=== PATIENT | female | born 1985 | race Caucasian/White ===

== ENCOUNTER 2021-04-21 08:17 | Outpatient (REF) | payer OTHER, SELFPAY ==
[2021-04-21 11:22] LABS: MANUAL DIFF FLAG NO
[2021-04-21 11:37] LABS: Basophils Percent Auto 0.4 % (0-2); Eosinophils Absolute Auto 0.1 X10*3/uL (0.0-0.4); Eosinophils Percent Auto 1.6 % (0-4); Hematocrit 38.7 % (37-47); Hemoglobin 12.9 g/dl (12.0-16.0); Imm Gran Abs Auto 0.01 X10*3/uL (0.00-0.03); Imm Gran Pct Auto 0.2 % (0.0-0.4); Lymphocytes Percent Auto 35.3 % (20-40); Mean Corpuscular HGB Conc 33.3 g/dl (31.0-35.0); Mean Corpuscular Hemoglobin 30.1 pg (27.0-33.0); Mean Corpuscular Volume 90.2 fL (80-98); Mean Platelet Volume 11.2 fL (9.4-12.3); Monocytes Absolute Auto 0.3 X10*3/uL (0.1-1.2); Neutrophils Absolute Auto 3.2 X10*3/uL (2.0-8.3); Neutrophils Percent Auto 57.5 % (45-73); Platelet Count 321 X10*3/uL (160-400); Red Blood Count 4.29 X10*6/uL (4.20-5.50); Red Cell Distribution Width 12.7 % (11.0-16.0); White Blood Count 5.6 X10*3/uL (4.8-10.8)
[2021-04-21 11:59] LABS: Alanine Aminotransferase 13 U/L (0-31); Albumin Level 4.1 g/dL (3.5-5.0); Alkaline Phosphatase 29 U/L (39-117); Anion Gap 12 (12-20); Aspartate Amino Transferase 12 U/L (5-31); Bilirubin Total 0.5 mg/dL (0.0-1.0); Blood Urea Nitrogen 11 mg/dL (9-16); Calcium 9.6 mg/dL (8.4-10.2); Carbon Dioxide 24 mmol/L (22-29); Chloride 107 mmol/L (96-108); Cholesterol 190 mg/dL; Estimated Glomerular Filt Rate > 60; Glucose Fasting 89 mg/dL (60-99); HDL Cholesterol 51 mg/dL; LDL Cholesterol Calculated 124 mg/dl; Potassium 4.5 mmol/L (3.3-5.1); Sodium 138 mmol/L (135-145); Total Protein 7.3 g/dL (6.5-8.0); Triglycerides 79 mg/dL
[2021-04-21 12:21] LABS: TSH reflex Free T4 0.93 uIU/mL (0.32-4.0)
== END 2021-04-21 08:18 | disposition home or self-care (01) ==
LOC: HO.HMGCLDS 08:17
PROVIDERS: PCP Internal Medicine; Visit Provider Internal Medicine
DX: F41.1 Generalized anxiety disorder (principal); F43.9 Reaction to severe stress, unspecified; R21 Rash and other nonspecific skin eruption; R41.840 Attention and concentration deficit
CPT/HCPCS: 36415; 80053; 80061; 84443; 85025

== ENCOUNTER 2022-09-06 13:50 | Outpatient (AMB) | payer OTHER, SELFPAY ==
--- NOTE | 2022-09-06 14:21 | AM.OFFWIN_ITS ---
Intake Vital Signs 09/06/22 14:25 BP 112/60 Blood Pressure Location Lt brachial Position Sitting Pulse 80 Pulse Source Pulse Oximeter Temp 97.9 F Temp Source Oral Pulse Oximetry (%) 96 Oxygen Delivery Method Room Air Intake Visit Reasons: EP Ear infection? [phone] Intake Note: Patient is here with left ear discomfort for 2-3 weeks. Patient Tobacco Use Status: Former Tobacco user Allergies No Known Allergies Allergy (Verified 01/30/23 11:37) Do you need a note to return to daycare/school/sports/work: No HPI EP Ear infection? [phone] HPI Details Patient is a 38-year-old female who comes to the walk-in clinic complaining of left ear discomfort for 2-3 weeks. No other associated respiratory symptoms, and she denies fever chills, cough, postnasal drip, headache or dizziness, nausea vomiting or diarrhea, leakage from the ears, hearing changes, or other significant associated symptoms. [facility] Medical History Anxiety, generalized Surgical History No pertinent past surgical history Family History Father No problems noted. Mother No problems noted. Sister Thyroid nodule Other Mental health disorder Social History Housing: House Patient Tobacco Use Status: Former Tobacco user e-Cigarette/Vaping Use: Never Used service: No Current occupational status: employed Cognitive needs: No Hearing needs: No Vision needs: No Review of Systems Const All systems reviewed & are unremarkable except as noted in HPI and below Physical Exam Vital Signs: Last Vital Signs Temp 97.9 F 09/06/22 14:25 Pulse 80 09/06/22 14:25 BP 112/60 09/06/22 14:25 Pulse Ox 96 09/06/22 14:25 Oxygen Delivery Method Room Air 09/06/22 14:25 Const General: cooperative, healthy appearing, comfortable, no acute distress, alert, awake, Physically active and well groomed; No anxious, diaphoretic, ill appearin g, intoxicated appearing, poor hygiene or tired appearing Nutritional Appearance: average body habitus Orientation/consciousness: oriented to person Limitations: no limitations HEENT Head: Yes normal to inspection, Yes normocephalic and Yes atraumatic Ears: hearing grossly normal bilaterally, external ears normal, TM normal on the right, EAC's normal and TM abnormal wth effusion, erythematous and with fluid behind the TM Face and sinus: Yes normal facial exam, Yes sinuses nontender and Yes face symmetric Throat: Yes posterior oropharynx normal, No peritonsillar mass, No postnasal drainage, No uvular edema and No cobblestoning Eyes General: appearance normal, both eyes and all related structures Neck Neck: Yes normal visual inspection, Yes no lymphadenopathy, Yes trachea midline, Yes supple and No anterior neck swelling Resp Effort & Inspection: normal respiratory effort Cardio Rate: regular rate Rhythm: regular rhythm Skin Other: Good color, warm and dry Neuro General: oriented to person Psych Appearance: grossly normal Mental Status: mental status grossly normal Speech and movement: Normal speech and movement present Affect: normal affect Attitude: cooperative Thought process: Normal thought process present Insight: Good insight present (Psych) Judgement: Good judgement present (Psych) Assessment & Plan Assessment & Plan (1) Otitis media of left ear: Code(s): H66.92 - Otitis media, unspecified, left ear Qualifiers: Chronicity: acute Plan: Patient with left otitis media, will start on course of Augmentin and we discussed using fluticasone to help with drainage. She will follow up if symptoms persist or worsen Medications: New amoxicillin-pot clavulanate 875-125 mg 1 tab PO BID 10 tabs 0RF fluticasone propionate 50 mcg/actuation administer into each nostril 1 spray intranasal DAILY 16 grams 0RF naproxen 500 mg PO BID PRN 30 tabs 0RF pain 14 days Coding Level of Care Code Est Pt Level 3 (36172) Diagnoses Otitis media of left ear H66.92 Chronicity: acute
[2022-09-06 14:25] VITALS: BP 112/60; PULSE 80; TEMP 36.6; O2SAT 96
== END 2022-09-06 15:55 | disposition home or self-care (01) ==
PROVIDERS: PCP Internal Medicine; Visit Provider Physician Assistant Medical
DX: H66.92 Otitis media, unspecified, left ear (principal)
CPT/HCPCS: 99213

== ENCOUNTER 2022-10-17 10:04 | Outpatient (REF) | payer OTHER, SELFPAY ==
--- NOTE | ~2022-10-17 | XR_ITS ---
EXAMINATION: XR CHEST CLINICAL INFORMATION: Cough. COMPARISON: None available. TECHNIQUE: 2 views of the chest were obtained. FINDINGS: No significant abnormality is noted involving the heart, lungs, mediastinum, bony thorax or soft tissues. XR/XR chest 2V IMPRESSION: No acute cardiopulmonary process.
== END 2022-10-17 10:05 | disposition home or self-care (01) ==
LOC: HO.HMGCX 10:04
PROVIDERS: Visit Provider Nurse Practitioner Family
DX: R05.9 Cough, unspecified (principal)
CPT/HCPCS: 71046

== ENCOUNTER 2023-01-30 11:36 | Outpatient (AMB) | payer OTHER, SELFPAY ==
[2023-01-30 11:36] VITALS: BP 116/84; PULSE 82; O2SAT 98; BMI 26.0
--- NOTE | 2023-01-30 11:36 | MHC.PC.OV ---
Vital Signs 01/30/23 11:36 Height 5 ft 4 in Weight 151 lb 6 oz BMI 26.0 BP 116/84 Blood Pressure Location Lt brachial Position Sitting Pulse 82 Pulse Source Pulse Oximeter Pulse Oximetry (%) 98 Oxygen Delivery Method Room Air Intake Visit Reasons: Annual PE Allergies No Known Allergies Allergy (Verified 01/30/23 11:37) Medication List - Last Reconciled 01/30/23 by Lorraine Omer MD buspirone 5 mg PO TID PRN 90 days fluticasone propionate 50 mcg/actuation 1 spray intranasal DAILY naproxen 500 mg PO BID PRN 14 days naproxen 375 mg PO BID PRN 3 days norethindrone (contraceptive) (Incassia) 0.35 mg PO DAILY Tobacco use date assessed: 01/30/23 Dental Screening Dental Screen Date: 01/30/23 Did you have a dental visit in the last 12 months?: Yes Did you have a dental problem in the last 6 months where you did not have access to dental care?: No Was dental information given to patient?: No HPI Annual PE HPI Details Patient is year old came in today for physical exam Patient have OBGYN at [facility] Pap smear and breast exams through them She has appointment for mammogram also through OBGYN in February that will be next month Patient have carpal tunnel syndrome left hand and now it is also starting in the right hand she is wearing a splint on left I would recommend to wear on right as well at night and if the splint is not controlling the symptoms then we need to further investigate regarding severity of the problem. I have ordered labs for her she is to do that fasting Patient is now seeing psych med provider for PTSD depression and anxiety currently she is taking buspirone 10 mg b.i.d. and Wellbutrin 150 mg once a day She has been weaned off fluoxetine. FMLA paperwork if needed still it should be through the psych med provider it is for patient's PTSD. Follow-up 1 year [facility] Medical History Anxiety, generalized Surgical History No pertinent past surgical history Family History Father No problems noted. Mother No problems noted. Sister Thyroid nodule Other Mental health disorder Social History Housing: House Patient Tobacco Use Status: Former Tobacco user e-Cigarette/Vaping Use: Never Used service: No Current occupational status: employed Cognitive needs: No Hearing needs: No Vision needs: No Questionnaire Thrive Questionnaire Date Thrive assessed: 04/19/22 AUDIT C Alcohol Use Questionnaire (AUDIT-C) 1. How often do you have a drink containing alcohol?: Monthly or less 2. How many drinks containing alcohol do you have on a typical day when you are drinking?: 1 or 2 3. How often do you have six or more drinks on one occasion?: Never Total Score: 1 Score Reviewed/Action Taken: Yes YUNI-7 AMB Questionnaire YUNI-7 Date YUNI - 7 assessed: 04/19/22 Source: Developed by Drs. Mario Alberto Lucero, Eleanor Phillips, Rony Melendez and colleagues, with an educational lupillo from [employer]. Review of Systems Const Denies chills, Denies fever(s) and Denies headache(s) Eyes Denies blurry vision ENT Denies headache(s), Denies nasal discharge, Denies nasal obstruction, Denies odynophagia and Denies sinus pain Card Denies chest pain at rest and Denies chest pain with activity Resp Denies cough and Denies hemoptysis GI Denies diarrhea, Denies odynophagia, Denies vomiting and Denies hematemesis Reports as per HPI Musc Denies abnormal gait Skin/Breast Reports as per HPI Neuro Denies Neuro-related abnormal movements, Denies Abnormal speech present, Denies abnormal gait, Denies headache(s) and Denies Sensory deficit (Neuro) Psych Denies mood swings and Denies paranoia Endo Reports as per HPI Buck/Lymph Reports as per HPI Aller/Immun Reports as per HPI Physical exam (Primary Care) Vital Signs: Last Vital Signs Pulse 82 01/30/23 11:36 BP 116/84 01/30/23 11:36 Pulse Ox 98 01/30/23 11:36 Oxygen Delivery Method Room Air 01/30/23 11:36 BMI result Body Mass Index 26.0 Tobacco/Smoking Status: Tobacco use Status Tobacco use date assessed 07/19/23 07/19/23 11:39 Patient Tobacco Use Status Former Tobacco user 01/30/23 11:39 e-Cigarette/Vaping Use Never Used 01/30/23 11:39 Thrive Assessment: Date of Thrive Assessment Date Thrive assessed 04/19/22 01/30/23 11:39 Const General: cooperative, comfortable and no acute distress Orientation/consciousness: patient oriented x3 HENMT Head: Yes normocephalic and Yes atraumatic Eyes General: appearance normal, both eyes and all related structures Pupils: Equal, round and reactive pupils present EOM: EOMs intact bilaterally Neck Neck: Yes supple and No lymphadenopathy Thyroid: Thyroid normal Lymphatic: no lymphadenopathy noted Resp Effort & Inspection: normal respiratory effort and able to speak in complete sentences Auscultation: clear to auscultation bilaterally Cardio Heart sounds: S1 normal heart sound present and S2 normal heart sound present GI Palpation (GI): Soft to palpation and nontender Auscultation: normal bowel sounds General: Yes no CVA tenderness Back/Spine/Pelvis Back: no CVA tenderness Skin General skin exam: elasticity normal and turgor normal Neuro General: patient oriented x3 and gait normal Cranial nerves: Yes Equal, round and reactive pupils present Speech: No Abnormal speech present Sensory Exam: No Sensory deficit (Neuro) Coordination: tandem gait normal and Romberg test negative Extrem General: Yes normal exam except as noted and No edema Assessment and Plan Assessment & Plan (1) Encounter for general adult medical examination with abnormal findings: Code(s): Z00.01 - Encounter for general adult medical examination with abnormal findings (2) Major depressive disorder, recurrent, moderate: Code(s): F33.1 - Major depressive disorder, recurrent, moderate (3) PTSD (post-traumatic stress disorder): Code(s): F43.10 - Post-traumatic stress disorder, unspecified (4) Anxiety, generalized: Code(s): F41.1 - Generalized anxiety disorder (5) Paresthesia of both hands: Code(s): R20.2 - Paresthesia of skin Plan Patient is year old came in today for physical exam Patient have OBGYN at [facility] Pap smear and breast exams through them She has appointment for mammogram also through OBGYN in February that will be next month Patient have carpal tunnel syndrome left hand and now it is also starting in the right hand she is wearing a splint on left I would recommend to wear on right as well at night and if the splint is not controlling the symptoms then we need to further investigate regarding severity of the problem. I have ordered labs for her she is to do that fasting Patient is now seeing psych med provider for PTSD depression and anxiety currently she is taking buspirone 10 mg b.i.d. and Wellbutrin 150 mg once a day She has been weaned off fluoxetine. FMLA paperwork if needed still it should be through the psych med provider it is for patient's PTSD. Follow-up 1 year Orders: Orders Comprehensive [place]. Panel Fast Today F33.1 - Major depressive disorder, recurrent, moderate, F41.1 - Generalized anxiety disorder, F43.10 - Post-traumatic stress disorder, unspecified, Z00.01 - Encounter for general adult medical examination with abnormal findings Lipid Panel Today F33.1 - Major depressive disorder, recurrent, moderate, F41.1 - Generalized anxiety disorder, F43.10 - Post-traumatic stress disorder, unspecified, Z00.01 - Encounter for general adult medical examination with abnormal findings TSH reflex Free T4 Today F33.1 - Major depressive disorder, recurrent, moderate, F41.1 - Generalized anxiety disorder, F43.10 - Post-traumatic stress disorder, unspecified, Z00.01 - Encounter for general adult medical examination with abnormal findings Complete Blood Count Auto Diff Today F33.1 - Major depressive disorder, recurrent, moderate, F41.1 - Generalized anxiety disorder, F43.10 - Post-traumatic stress disorder, unspecified, Z00.01 - Encounter for general adult medical examination with abnormal findings Vitamin B12 Today R20.2 - Paresthesia of skin Vitamin D 25-OH (D2 and D3) Today R20.2 - Paresthesia of skin Coding Level of Care Code Est Pt Prev Care 40-64y(67814) Diagnoses Encounter for general adult medical examination with abnormal findings Z00.01 Major depressive disorder, recurrent, moderate F33.1 PTSD (post-traumatic stress disorder) F43.10 Anxiety, generalized F41.1 Paresthesia of both hands R20.2
== END 2023-01-30 14:13 | disposition home or self-care (01) ==
PROVIDERS: Visit Provider Internal Medicine
DX: Z00.01 Encounter for general adult medical examination with abnormal findings (principal); F33.1 Major depressive disorder, recurrent, moderate; F43.10 Post-traumatic stress disorder, unspecified; F41.1 Generalized anxiety disorder; R20.2 Paresthesia of skin
CPT/HCPCS: 99396

== ENCOUNTER 2023-04-19 15:38 | Outpatient (AMB) | payer OTHER, SELFPAY ==
[2023-04-19 15:39] VITALS: BP 118/78; PULSE 70; O2SAT 99; BMI 27.5
--- NOTE | 2023-04-19 15:39 | MHC.PC.OV ---
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: No Accompanied by: Self / Same As Patient Allergies No Known Allergies Allergy (Verified 04/19/23 15:39) Medication List - Last Reconciled 04/19/23 by Lorraine Omer MD bupropion HCl 150 mg PO QAM buspirone 5 mg PO TID PRN 90 days drospirenone-ethinyl estradiol 3-0.02 mg (Maria D (28)) 1 tab PO DAILY fluticasone propionate 50 mcg/actuation 1 spray intranasal DAILY naproxen 500 mg PO BID PRN 14 days Tobacco use date assessed: 01/30/23 Dental Screening Dental Screen Date: 04/19/23 Did you have a dental visit in the last 12 months?: Yes Did you have a dental problem in the last 6 months where you did not have access to dental care?: No Was dental information given to patient?: Patient has dentist HPI Left hand tingling/ Numbness HPI Details Patient is 38-year-old female came in today to talk about tingling and numbness in left hand more than right Patient have this problem chronically but now it has gotten worse. She said that she sometimes feels weak in her hand. We talked about carpal tunnel syndrome and what can be done to release the pressure from the nerve She is on the computer all day typing , I have told her to get a proper computer stand so that her wrist is not band. Also start wearing wrist splint at night every night Naproxen with food b.i.d. as needed for discomfort and inflammation I have ordered nerve conduction study for the patient to see how but the problem is and then we will go from there. [facility] Medical History Anxiety, generalized Surgical History No pertinent past surgical history Family History Father No problems noted. Mother No problems noted. Sister Thyroid nodule Other Mental health disorder Social History Housing: House Patient Tobacco Use Status: Former Tobacco user e-Cigarette/Vaping Use: Never Used service: No Current occupational status: employed Cognitive needs: No Hearing needs: No Vision needs: No Questionnaire PHQ-9 Over the last 2 weeks, how often have you been bothered by any of the following problems? 1. Little interest or pleasure in doing things: several days 2. Feeling down, depressed, or hopeless: several days 3. Trouble falling or staying asleep, or sleeping too much: more than half the days 4. Feeling tired or having little energy: more than half the days 5. Poor appetite or overeating: more than half the days 6. Feeling bad about yourself - or that you are a failure or have let yourself or your family down: several days 7. Trouble concentrating on things, such as reading the newspaper or watching television: more than half the days 8. Moving or speaking so slowly that other people could have noticed. Or the opposite - being so fidgety or restless that you have been moving around a lot more than usual: several days 9. Thoughts that you would be better off or of hurting yourself in some way: not at all Total score: 12 Depression Screening Interpretation: Positive Depression Screening Done: Yes 66609 - PHQ-9 Billing: Yes Source: Developed by Drs. Mario Alberto Lucero, Eleanor Phillips, Rony Melendez and colleagues, with an educational lupillo from [employer]. Thrive Questionnaire Date Thrive assessed: 04/19/23 I am a: Patient What is your living situation today?: I have a steady place to live Within the past 12 months, did the food you bought not last and you didn't have the money to get more?: Never true Within the past 12 months, did you worry whether your food would run out before you got money to buy more?: Never true Do you have trouble paying for medicines?: No Do you have trouble getting transportation to medical appointments?: No Do you have trouble paying your heating and electricity bill?: No Do you have trouble taking care of your child, family member or friend?: No Do you have trouble with day-to-day activities such as bathing, preparing meals, shopping, managing finances, etc.?: No Are you currently unemployed and looking for a job?: No Are you interested in more education?: No Please select the resources that you would like help with: None Currently or been in a relationship where the following occur: I choose not to answer this question YUNI-7 AMB Questionnaire YUNI-7 Date YUNI - 7 assessed: 04/19/22 Feeling nervous, anxious, or on edge: 2 = More than half the days Not being able to stop or control worryin = Several days Worrying too much about different things: 2 = More than half the days Trouble relaxin = Several days Being so restless that it is hard to sit still: 2 = More than half the days Becoming easily annoyed or irritable: 2 = More than half the days Feeling afraid as if something awful might happen: 0 = Not at all Total YUIN-7 score (0-4 normal; 5-9 mild; 10-14 moderate; 15-21 severe): 10 Source: Developed by Drs. Mario Alberto Lucero, Eleanor Phillips, Rony Melendez and colleagues, with an educational lupillo from [employer]. YUNI-7 Assessment Billing YUNI-7 Assessment Tool: YUNI-7 Assessment 78484 Review of Systems Const All systems reviewed & are unremarkable except as noted in HPI and below Physical exam (Primary Care) Vital Signs: Last Vital Signs Pulse 70 04/19/23 15:39 BP 118/78 04/19/23 15:39 Pulse Ox 99 04/19/23 15:39 BMI result Body Mass Index 27.5 Tobacco/Smoking Status: Tobacco use Status Tobacco use date assessed 01/30/23 04/19/23 15:41 Patient Tobacco Use Status Former Tobacco user 04/19/23 15:41 e-Cigarette/Vaping Use Never Used 04/19/23 15:41 PHQ-9: PHQ-9 Score PHQ-9: Total score 12 04/19/23 16:08 Depression Screening Interpretation: Positive Thrive Assessment: Date of Thrive Assessment Date Thrive assessed 04/19/23 04/19/23 16:08 Currently or been in a relationship where the following occur: I choose not to answer this question Const General: no acute distress Orientation/consciousness: patient oriented x3 Eyes General: appearance normal, both eyes and all related structures Resp Effort & Inspection: normal respiratory effort and able to speak in complete sentences Auscultation: clear to auscultation bilaterally Neuro Other: Positive Tinel sign left wrist General: patient oriented x3 Psych Mental Status: mental status grossly normal Assessment and Plan Assessment & Plan (1) Paresthesia of both hands: Code(s): R20.2 - Paresthesia of skin Plan Patient is 38-year-old female came in today to talk about tingling and numbness in left hand more than right Patient have this problem chronically but now it has gotten worse. She said that she sometimes feels weak in her hand. We talked about carpal tunnel syndrome and what can be done to release the pressure from the nerve She is on the computer all day typing , I have told her to get a proper computer stand so that her wrist is not band. Also start wearing wrist splint at night every night Naproxen with food b.i.d. as needed for discomfort and inflammation I have ordered nerve conduction study for the patient to see how but the problem is and then we will go from there. Orders: Orders NE nerve conduction velocity Today R20.2 - Paresthesia of skin NE electromyogram (EMG) Today R20.2 - Paresthesia of skin Coding Level of Care Code Est Pt Level 4 (99097) Diagnoses Paresthesia of both hands R20.2 Additional Codes YUNI-7 Assessment Billing - YUNI-7 Assessment Tool: YUNI-7 Assessment [id number] ([id number])
== END 2023-04-19 16:06 | disposition home or self-care (01) ==
PROVIDERS: PCP Internal Medicine; Visit Provider Internal Medicine
DX: R20.2 Paresthesia of skin (principal)
CPT/HCPCS: 99214

== ENCOUNTER 2023-05-09 08:17 | Outpatient (REF) | payer OTHER, SELFPAY ==
--- NOTE | 2023-05-09 08:21 | EMG_ITS ---
Left median and ulnar motor and sensory studies were performed. Left radial and median and lateral antecubital sensory studies were performed and paraspinal muscles were tested. IMPRESSION: 1. 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 2. Mild left ulnar neuropathy across cubital tunnel. 3. No evidence of a proximal lesion such as plexopathy or radiculopathy. MD WAYNE Joyner/GOLDEN / [id number]
== END 2023-05-09 08:18 | disposition home or self-care (01) ==
LOC: HO.NEURO 08:17
PROVIDERS: Visit Provider Internal Medicine
DX: R20.2 Paresthesia of skin (principal)
CPT/HCPCS: 95886; 95910

== ENCOUNTER 2023-05-16 09:04 | Outpatient (AMB) | payer OTHER, SELFPAY ==
--- NOTE | 2023-05-16 08:28 | A.OFFPC_ITS ---
Intake Visit Reasons: Discuss Test Results/ Numbness In Hands~ Allergies No Known Allergies Allergy (Verified 05/16/23 08:29) Medication List - Last Reconciled 05/16/23 by Lorraine Omer MD bupropion HCl 150 mg PO QAM buspirone 5 mg PO TID PRN 90 days drospirenone-ethinyl estradiol 3-0.02 mg (Maria D (28)) 1 tab PO DAILY fluticasone propionate 50 mcg/actuation 1 spray intranasal DAILY naproxen 500 mg PO BID PRN 14 days Tobacco use date assessed: 05/16/23 Dental Screening Dental Screen Date: 05/16/23 Did you have a dental visit in the last 12 months?: No Did you have a dental problem in the last 6 months where you did not have access to dental care?: No Was dental information given to patient?: Patient has dentist HPI Discuss Test Results/ Numbness In Hands~ HPI Details Patient continued to have paresthesia left hand, she has worn splint and has taken a leave it has been almost 1 month and symptoms persist and is getting worse Nerve conduction study done on left hand showed Asyz-xa-jayrydun left median neuropathy across carpal tunnel. 2. Mild left ulnar neuropathy across cub ital tunnel. 3. No evidence of a proximal lesion such as plexopathy or radiculopathy. Her workman's comp declined right-sided nerve conduction study even though patient is symptomatic on the right side as well but it is not as bad as left She has already made appointment with [facility] Dr. Dunbar Appointment is coming up next Uziel We talked about different options like cortisone injection and surgery patient had lot of question regarding recovery. She will discuss it further with the surgeon. Referral created and we will also fax over this note. [facility] Medical History Anxiety, generalized Surgical History No pertinent past surgical history Family History Father No problems noted. Mother No problems noted. Sister Thyroid nodule Other Mental health disorder Social History Housing: House Patient Tobacco Use Status: Former Tobacco user e-Cigarette/Vaping Use: Never Used service: No Current occupational status: employed Cognitive needs: No Hearing needs: No Vision needs: No Questionnaire Thrive Questionnaire Date Thrive assessed: 04/19/23 AUDIT C Alcohol Use Questionnaire (AUDIT-C) 1. How often do you have a drink containing alcohol?: Never 3. How often do you have six or more drinks on one occasion?: Never Total Score: 0 Score Reviewed/Action Taken: Yes YUNI-7 AMB Questionnaire YUNI-7 Date YUNI - 7 assessed: 04/19/22 Source: Developed by Drs. Mario Alberto Lucero, Eleanor Phillips, Rony Melendez and colleagues, with an educational lupillo from [employer]. Review of Systems Const Denies chills and Denies fever(s) ENT Denies epistaxis and Denies nasal discharge Card Denies chest pain Resp Denies chest congestion, Denies cough and Denies hemoptysis GI Denies diarrhea and Denies nausea Skin/Breast Denies rash Neuro Reports no additional complaints Psych Reports no additional complaints Endo Reports no additional complaints Physical exam (Primary Care) Tobacco/Smoking Status: Tobacco use Status Tobacco use date assessed 05/16/23 05/16/23 08:30 Patient Tobacco Use Status Former Tobacco user 05/16/23 08:30 e-Cigarette/Vaping Use Never Used 05/16/23 08:30 Thrive Assessment: Date of Thrive Assessment Date Thrive assessed 04/19/23 05/16/23 08:30 Telehealth Telehealth Location of provider rendering services: practice address Location of patient: address on file Patient Identification confirmed using: Name, : Yes Telehealth method: video Patient verbally consented to treatment: Yes Patient verbally consented to billing insurance company: Yes Patient informed of any privacy concerns related to visit: Yes Minutes spent on Phone/Video with Pt.: 18 Assessment and Plan Assessment & Plan (1) Left median nerve neuropathy: Code(s): G56.12 - Other lesions of median nerve, left upper limb (2) Ulnar nerve neuropathy: Code(s): G56.20 - Lesion of ulnar nerve, unspecified upper limb Qualifiers: Laterality: left Qualified Code(s): G56.22 - Lesion of ulnar nerve, left upper limb (3) Paresthesia of both hands: Code(s): R20.2 - Paresthesia of skin Plan Patient continued to have paresthesia left hand, she has worn splint and has taken a leave it has been almost 1 month and symptoms persist and is getting worse Nerve conduction study done on left hand showed Uuec-ce-sywscjat left median neuropathy across carpal tunnel. 2. Mild left ulnar neuropathy across cubital tunnel. 3. No evidence of a proximal lesion such as plexopathy or radiculopathy. Her workman's comp declined right-sided nerve conduction study even though patient is symptomatic on the right side as well but it is not as bad as left She has already made appointment with [facility] Dr. Dunbar Appointment is coming up next Uziel We talked about different options like cortisone injection and surgery patient had lot of question regarding recovery. She will discuss it further with the surgeon. Referral created and we will also fax over this note. Orders: Referrals Orthopedics Referral G56.12 - Other lesions of median nerve, left upper limb Coding Level of Care Code Tele Est Pt Level 4 (91448) Diagnoses Left median nerve neuropathy G56.12 Ulnar neuropathy of left upper extremity G56.22 Laterality: left Paresthesia of both hands R20.2 Time Spent (min) 30 Comment 5 prep, 18 with patient, 7 charting / referral
== END 2023-05-16 11:25 | disposition home or self-care (01) ==
PROVIDERS: PCP Internal Medicine; Visit Provider Internal Medicine
DX: G56.12 Other lesions of median nerve, left upper limb (principal); G56.22 Lesion of ulnar nerve, left upper limb; R20.2 Paresthesia of skin
CPT/HCPCS: 99214

== ENCOUNTER 2023-06-19 09:09 | Outpatient (AMB) | payer OTHER, SELFPAY ==
--- NOTE | 2023-06-19 09:25 | AM.OFFWIN_ITS ---
Intake Vital Signs 06/19/23 09:26 Height 5 ft 4 in Weight 160 lb BMI 27.5 BP 90/50 L Blood Pressure Location Rt brachial Position Sitting Pulse 69 Pulse Source Pulse Oximeter Temp 97 F Temp Source Temporal Artery Scan Pulse Oximetry (%) 97 Oxygen Delivery Method Room Air Intake Visit Reasons: EP Lft ear ringing stomach nausea Intake Note: Pt is here c/o ringing sound in her left ear for the past three days. Pt also states she has had diarrhea and stomach discomfort. Patient Tobacco Use Status: Former Tobacco user Allergies No Known Allergies Allergy (Verified 06/19/23 09:56) Medication List - Last Reconciled 06/19/23 by Leigh Reed, [facility]- bupropion HCl 150 mg PO QAM buspirone 5 mg PO TID PRN 90 days drospirenone-ethinyl estradiol 3-0.02 mg (Maria D (28)) 1 tab PO DAILY fluticasone propionate 50 mcg/actuation 1 spray intranasal DAILY naproxen 500 mg PO BID PRN 14 days Do you need a note to return to daycare/school/sports/work: Yes HPI HPI Comments History of Present Illness Details here today w c/o ringing in bilat luz maria L>R, started a few days ago. It is constant. No pain in ears. Hearing is muffled but not lost. Not assoc w/ trauma. Takes otc antihistamine QD and occasional use of flonase. PRN Naproxen, sparingly. Did take Aleve today. Also had 2 episodes of diarrhea, nonbloody, today. This started after consuming new diet, high in fiber and raw veggies. She doesnt think her issues are related but wanted to mention the diarrhea. Denies fever, travel, sick contacts, n/v, urinary complaints. Admits chills. Denies drainage from ear, swimming, abd surgery, chance of . She is on OCP. Tried supportive care at home w/o relief. [facility] Medical History Anxiety, generalized Surgical History No pertinent past surgical history Family History Father No problems noted. Mother No problems noted. Sister Thyroid nodule Other Mental health disorder Social History Housing: House Patient Tobacco Use Status: Former Tobacco user e-Cigarette/Vaping Use: Never Used service: No Current occupational status: employed Cognitive needs: No Hearing needs: No Vision needs: No Review of Systems Const All systems reviewed & are unremarkable except as noted in HPI and below Physical Exam Vital Signs: Last Vital Signs Temp 97 F 06/19/23 09:26 Pulse 69 06/19/23 09:26 BP 90/50 L 06/19/23 09:26 Pulse Ox 97 06/19/23 09:26 Oxygen Delivery Method Room Air 06/19/23 09:26 BMI result Body Mass Index 27.5 Const Other: awake alert sclera clear bilat sinuses & turbinates clear bilat TM intact bilat with very mild effusions pharynx clear MMM speaking in full setences Abd: soft, nontender. BS WNL x 4 quads. Assessment & Plan Assessment & Plan (1) Tinnitus: Code(s): H93.19 - Tinnitus, unspecified ear Qualifiers: Laterality: bilateral Qualified Code(s): H93.13 - Tinnitus, bilateral Plan: reassured; edu about some causes though often idiopathic and benign edu about need to seek add'l care: loss of hearing, pain, drainage. avoid high Na+ food and drink. Ok to use flonase; avoid other nasal spray. (2) Diarrhea: Code(s): R19.7 - Diarrhea, unspecified Qualifiers: Diarrhea type: functional diarrhea Qualified Code(s): K59.1 - Functional diarrhea Plan: likely r/t high fiber and new diet avoid high fiber and known food triggers if abd pain, bloody stools or vomiting occur, need to seek addl care otherwise can use otc imodium PRN Coding Level of Care Code Est Pt Level 4 (64894) Diagnoses Tinnitus of both ears H93.13 Laterality: bilateral Functional diarrhea K59.1 Diarrhea type: functional diarrhea
[2023-06-19 09:26] VITALS: BP 90/50; PULSE 69; TEMP 36.1; O2SAT 97; BMI 27.5
== END 2023-06-19 10:28 | disposition home or self-care (01) ==
PROVIDERS: PCP Internal Medicine; Visit Provider Nurse Practitioner Family
DX: H93.13 Tinnitus, bilateral (principal); K59.1 Functional diarrhea
CPT/HCPCS: 99214

== ENCOUNTER 2024-02-04 15:40 | Outpatient (AMB) | payer OTHER, SELFPAY ==
--- NOTE | 2024-02-04 15:42 | MHC.PC.OV ---
Vital Signs 02/04/24 15:43 Height 5 ft 4 in Weight 156 lb 6 oz BMI 26.8 BP 102/70 Blood Pressure Location Rt brachial Position Sitting Pulse 78 Pulse Source Pulse Oximeter Pulse Oximetry (%) 99 Oxygen Delivery Method Room Air Intake Visit Reasons: Physical Exam Allergies No Known Allergies Allergy (Verified 02/04/24 15:45) Medication List - Last Reconciled 02/04/24 by Lorraine Omer MD bupropion HCl XL 300 mg PO QAM buspirone 5 mg PO TID PRN 90 days drospirenone-ethinyl estradiol 3-0.02 mg (Maria D (28)) 1 tab PO DAILY fluticasone propionate 50 mcg/actuation 1 spray intranasal DAILY Tobacco use date assessed: 05/16/23 Dental Screening Dental Screen Date: 02/04/24 Did you have a dental visit in the last 12 months?: Yes Did you have a dental problem in the last 6 months where you did not have access to dental care?: No Was dental information given to patient?: Patient has dentist HPI Physical Exam HPI Details Patient is 39 year old female, came in today for physical exam Patient had OBGYN at [facility] however daughter retired and she is in need of new OBGYN Mammograms up-to-date Patient have chronic constipation and she bleed off and due to hemorrhoids most likely She is requesting a referral to gastroenterology which I have placed for her Lab order placed to be done fasting Patient was seeing psych med provider for PTSD depression and anxiety currently she is taking buspirone 10 mg b.i.d. 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 Mother No problems noted. Sister Thyroid nodule Other Mental health disorder Social History Housing: House Patient Tobacco Use Status: Former Tobacco user e-Cigarette/Vaping Use: Never Used service: No Current occupational status: employed Cognitive needs: No Hearing needs: No Vision needs: No Questionnaire PHQ-9 Over the last 2 weeks, how often have you been bothered by any of the following problems? 1. Little interest or pleasure in doing things: several days 2. Feeling down, depressed, or hopeless: several days 3. Trouble falling or staying asleep, or sleeping too much: several days 4. Feeling tired or having little energy: several days 5. Poor appetite or overeating: several days 6. Feeling bad about yourself - or that you are a failure or have let yourself or your family down: several days 7. Trouble concentrating on things, such as reading the newspaper or watching television: several days 8. Moving or speaking so slowly that other people could have noticed. Or the opposite - being so fidgety or restless that you have been moving around a lot more than usual: several days 9. Thoughts that you would be better off or of hurting yourself in some way: not at all Total score: 8 Depression Screening Interpretation: Negative Depression Screening Done: Yes 25118 - PHQ-9 Billing: Yes Source: Developed by Drs. Mario Alberto Lucero, Eleanor Phillips, Rony Melendez and colleagues, with an educational lupillo from [employer]. Thrive Questionnaire Date Thrive assessed: 02/04/24 I am a: Patient What is your living situation today?: I have a place to live, but I am worried about losing it in the future Within the past 12 months, did the food you bought not last and you didn't have the money to get more?: Never true Within the past 12 months, did you worry whether your food would run out before you got money to buy more?: Never true Do you have trouble paying for medicines?: No Do you have trouble getting transportation to medical appointments?: No Do you have trouble paying your heating and electricity bill?: Yes Do you have trouble taking care of your child, family member or friend?: No Do you have trouble with day-to-day activities such as bathing, preparing meals, shopping, managing finances, etc.?: No Are you currently unemployed and looking for a job?: No Are you interested in more education?: No Please select the resources that you would like help with: Housing/Detention Currently or been in a relationship where the following occur: I choose not to answer THRIVE Score: 2 AUDIT C Alcohol Use Questionnaire (AUDIT-C) 1. How often do you have a drink containing alcohol?: 2-4 times a month 2. How many drinks containing alcohol do you have on a typical day when you are drinking?: 3 or 4 3. How often do you have six or more drinks on one occasion?: Never Total Score: 3 Score Reviewed/Action Taken: Yes YUNI-7 AMB Questionnaire YUNI-7 Date YUNI - 7 assessed: 02/04/24 Feeling nervous, anxious, or on edge: 2 = More than half the days Not being able to stop or control worryin = More than half the days Worrying too much about different things: 2 = More than half the days Trouble relaxin = More than half the days Being so restless that it is hard to sit still: 1 = Several days Becoming easily annoyed or irritable: 2 = More than half the days Feeling afraid as if something awful might happen: 1 = Several days Total YUNI-7 score (0-4 normal; 5-9 mild; 10-14 moderate; 15-21 severe): 12 Source: Developed by Drs. Mario Alberto Lucero, Eleanor Phillips, Rony Melendez and colleagues, with an educational lupillo from [employer]. YUNI-7 Assessment Billing YUNI-7 Assessment Tool: YUNI-7 Assessment 99812 Review of Systems Const Denies chills, Denies fever(s) and Denies headache(s) Eyes Denies blurry vision ENT Denies headache(s), Denies nasal discharge, Denies nasal obstruction, Denies odynophagia and Denies sinus pain Card Denies chest pain at rest and Denies chest pain with activity Resp Denies cough and Denies hemoptysis GI Denies diarrhea, Denies odynophagia, Denies vomiting and Denies hematemesis Reports as per HPI Musc Denies abnormal gait Skin/Breast Reports as per HPI Neuro Denies Neuro-related abnormal movements, Denies Abnormal speech present, Denies abnormal gait, Denies headache(s) and Denies Sensory deficit (Neuro) Psych Denies mood swings and Denies paranoia Endo Reports as per HPI Buck/Lymph Reports as per HPI Aller/Immun Reports as per HPI Physical exam (Primary Care) Vital Signs: Last Vital Signs Pulse 78 02/04/24 15:43 BP 102/70 02/04/24 15:43 Pulse Ox 99 02/04/24 15:43 Oxygen Delivery Method Room Air 02/04/24 15:43 BMI result Body Mass Index 26.8 Tobacco/Smoking Status: Tobacco use Status Tobacco use date assessed 05/16/23 02/04/24 15:47 Patient Tobacco Use Status Former Tobacco user 02/04/24 15:47 e-Cigarette/Vaping Use Never Used 02/04/24 15:47 PHQ-9: PHQ-9 Score PHQ-9: Total score 8 02/04/24 15:47 Depression Screening Interpretation: Negative Thrive Assessment: Date of Thrive Assessment Date Thrive assessed 02/04/24 02/04/24 15:47 Currently or been in a relationship where the following occur: I choose not to answer Const General: cooperative, comfortable and no acute distress Orientation/consciousness: patient oriented x3 HENMT Head: Yes normocephalic and Yes atraumatic Eyes General: appearance normal, both eyes and all related structures Pupils: Equal, round and reactive pupils present EOM: EOMs intact bilaterally Neck Neck: Yes supple and No lymphadenopathy Thyroid: Thyroid normal Lymphatic: no lymphadenopathy noted Resp Effort & Inspection: normal respiratory effort and able to speak in complete sentences Auscultation: clear to auscultation bilaterally Cardio Heart sounds: S1 normal heart sound present and S2 normal heart sound present GI Palpation (GI): Soft to palpation and nontender Auscultation: normal bowel sounds General: Yes no CVA tenderness Back/Spine/Pelvis Back: no CVA tenderness Skin General skin exam: elasticity normal and turgor normal Neuro General: patient oriented x3 and gait normal Cranial nerves: Yes Equal, round and reactive pupils present Speech: No Abnormal speech present Sensory Exam: No Sensory deficit (Neuro) Coordination: tandem gait normal and Romberg test negative Extrem General: Yes normal exam except as noted and No edema Assessment and Plan Assessment & Plan (1) Encounter for general adult medical examination with abnormal findings: Code(s): Z00.01 - Encounter for general adult medical examination with abnormal findings (2) Rectal bleed: Code(s): K62.5 - Hemorrhage of anus and rectum (3) Tired: Code(s): R53.83 - Other fatigue (4) Constipation by delayed colonic transit: Code(s): K59.01 - Slow transit constipation (5) Anxiety, generalized: Code(s): F41.1 - Generalized anxiety disorder (6) Panic attacks: Code(s): F41.0 - Panic disorder [episodic paroxysmal anxiety] (7) PTSD (post-traumatic stress disorder): Code(s): F43.10 - Post-traumatic stress disorder, unspecified (8) Major depressive disorder, recurrent, moderate: Code(s): F33.1 - Major depressive disorder, recurrent, moderate Plan Patient is 39 year old female, came in today for physical exam Patient had OBGYN at [facility] however daughter retired and she is in need of new OBGYN Mammograms up-to-date Patient have chronic constipation and she bleed off and due to hemorrhoids most likely She is requesting a referral to gastroenterology which I have placed for her Lab order placed to be done fasting Patient was seeing psych med provider for PTSD depression and anxiety currently she is taking buspirone 10 mg b.i.d. 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 Panel Fast Today F33.1 - Major depressive disorder, recurrent, moderate, F41.1 - Generalized anxiety disorder, F43.10 - Post-traumatic stress disorder, unspecified, K59.01 - Slow transit constipation, K62.5 - Hemorrhage of anus and rectum, R20.2 - Paresthesia of skin, R53.83 - Other fatigue Lipid Panel Today F33.1 - Major depressive disorder, recurrent, moderate, F41.1 - Generalized anxiety disorder, F43.10 - Post-traumatic stress disorder, unspecified, K59.01 - Slow transit constipation, K62.5 - Hemorrhage of anus and rectum, R20.2 - Paresthesia of skin, R53.83 - Other fatigue Vitamin D 25-OH (D2 and D3) Today F33.1 - Major depressive disorder, recurrent, moderate, F41.1 - Generalized anxiety disorder, F43.10 - Post-traumatic stress disorder, unspecified, K59.01 - Slow transit constipation, K62.5 - Hemorrhage of anus and rectum, R20.2 - Paresthesia of skin, R53.83 - Other fatigue Complete Blood Count Auto Diff Today F33.1 - Major depressive disorder, recurrent, moderate, F41.1 - Generalized anxiety disorder, F43.10 - Post-traumatic stress disorder, unspecified, K59.01 - Slow transit constipation, K62.5 - Hemorrhage of anus and rectum, R20.2 - Paresthesia of skin, R53.83 - Other fatigue Vitamin B12 Today F33.1 - Major depressive disorder, recurrent, moderate, F41.1 - Generalized anxiety disorder, F43.10 - Post-traumatic stress disorder, unspecified, K59.01 - Slow transit constipation, K62.5 - Hemorrhage of anus and rectum, R20.2 - Paresthesia of skin, R53.83 - Other fatigue TSH reflex Free T4 Today F33.1 - Major depressive disorder, recurrent, moderate, F41.1 - Generalized anxiety disorder, F43.10 - Post-traumatic stress disorder, unspecified, K59.01 - Slow transit constipation, K62.5 - Hemorrhage of anus and rectum, R20.2 - Paresthesia of skin, R53.83 - Other fatigue 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 Z01.419 - Encounter for gynecological examination (general) (routine) without abnormal findings Gastroenterology Referral K59.01 - Slow transit constipation, K62.5 - Hemorrhage of anus and rectum Psychiatry Referral F33.1 - Major depressive disorder, recurrent, moderate, F41.0 - Panic disorder [episodic paroxysmal anxiety], F43.10 - Post-traumatic stress disorder, unspecified Medications: Discontinued naproxen Discontinued Reason: Patient Completed Course 500 mg PO BID 14 days PRN 30 tabs 0RF pain Coding Level of Care Code Est Pt Level 4 (25403) Est Pt Prev Care 40-64y(16178) Diagnoses Encounter for general adult medical examination with abnormal findings Z00.01 Rectal bleed K62.5 Tired R53.83 Constipation by delayed colonic transit K59.01 Anxiety, generalized F41.1 Panic attacks F41.0 PTSD (post-traumatic stress disorder) F43.10 Major depressive disorder, recurrent, moderate F33.1 Additional Codes YUNI-7 Assessment Billing - YUNI-7 Assessment Tool: YUNI-7 Assessment 54258 ( ([id number])
[2024-02-04 15:43] VITALS: BP 102/70; PULSE 78; O2SAT 99; BMI 26.8
== END 2024-02-04 16:19 | disposition home or self-care (01) ==
PROVIDERS: PCP Internal Medicine; Visit Provider Internal Medicine
DX: Z00.00 Encounter for general adult medical examination without abnormal findings (principal); F33.1 Major depressive disorder, recurrent, moderate; K62.5 Hemorrhage of anus and rectum; R53.83 Other fatigue; K59.01 Slow transit constipation; F41.1 Generalized anxiety disorder; F41.0 Panic disorder [episodic paroxysmal anxiety]; F43.10 Post-traumatic stress disorder, unspecified
CPT/HCPCS: 99396

== ENCOUNTER 2024-03-06 06:59 | Outpatient (REF) | payer OTHER, SELFPAY ==
[2024-03-06 10:07] LABS: MANUAL DIFF FLAG NO
[2024-03-06 10:22] LABS: Basophils Percent Auto 0.7 % (0-2); Eosinophils Absolute Auto 0.1 X10*3/uL (0.0-0.4); Eosinophils Percent Auto 2.2 % (0-4); Hematocrit 36.8 % (37.0-47.0); Hemoglobin 12.3 g/dl (12.0-16.0); Imm Gran Abs Auto 0.01 X10*3/uL (0.00-0.03); Imm Gran Pct Auto 0.2 % (0.0-0.4); Lymphocytes Absolute Auto 2.7 X10*3/uL (1.2-4.9); Lymphocytes Percent Auto 44.6 % (20-40); Mean Corpuscular HGB Conc 33.4 g/dl (31.0-35.0); Mean Corpuscular Hemoglobin 30.4 pg (27.0-33.0); Mean Corpuscular Volume 90.9 fL (80.0-98.0); Mean Platelet Volume 10.7 fL (9.4-12.3); Monocytes Absolute Auto 0.4 X10*3/uL (0.1-1.2); Monocytes Percent Auto 6.1 % (2-11); Neutrophils Absolute Auto 2.8 x10*3/uL (2.0-8.3); Neutrophils Percent Auto 46.2 % (45-73); Platelet Count 318 X10*3/uL (160-400); Red Blood Count 4.05 X10*6/uL (4.20-5.50); Red Cell Distribution Width 12.8 % (11.0-16.0)
[2024-03-06 10:46] LABS: Alanine Aminotransferase 12 U/L (0-31); Alkaline Phosphatase 36 U/L (39-117); Anion Gap 11 (12-20); Aspartate Amino Transferase 12 U/L (5-31); Bilirubin Total 0.5 mg/dL (0.0-1.0); Blood Urea Nitrogen 12 mg/dL (9-16); Calcium 9.5 mg/dL (8.4-10.2); Carbon Dioxide 27 mmol/L (22-29); Chloride 106 mmol/L (96-108); Cholesterol 191 mg/dL (<200); Estimated Glomerular Filt Rate > 60; Glucose Fasting 90 mg/dL (60-99); HDL Cholesterol 63 mg/dL (>40); LDL Cholesterol Calculated 109 mg/dL (<100); Potassium 4.2 mmol/L (3.3-5.1); Sodium 140 mmol/L (135-145); Total Protein 7.3 g/dL (6.5-8.0); Triglycerides 99 mg/dL (<150)
[2024-03-06 11:01] LABS: Vitamin B12 359 pg/mL (200-900)
[2024-03-06 11:05] LABS: TSH reflex Free T4 2.92 uIU/mL (0.32-4.0)
[2024-03-12 11:29] LABS: Vitamin D 25-OH, D2 <4 ng/mL; Vitamin D 25-OH, D3 66 ng/mL; Vitamin D 25-OH, Total 66 ng/mL (30-100)
== END 2024-03-06 07:00 | disposition home or self-care (01) ==
LOC: HO.HMGCLDS 06:59
PROVIDERS: PCP Internal Medicine; Visit Provider Internal Medicine
DX: R20.2 Paresthesia of skin (principal); F33.1 Major depressive disorder, recurrent, moderate; F43.10 Post-traumatic stress disorder, unspecified; F41.1 Generalized anxiety disorder; K62.5 Hemorrhage of anus and rectum; K59.01 Slow transit constipation
CPT/HCPCS: 36415; 80053; 80061; 82306; 82607; 84443; 85025

== ENCOUNTER 2024-04-20 14:48 | Outpatient (AMB) | payer OTHER, SELFPAY ==
[2024-04-20 14:50] VITALS: BP 114/76; PULSE 74; O2SAT 97; BMI 25.5
--- NOTE | 2024-04-20 14:50 | A.OFFVIS_ITS ---
Vital Signs 04/20/24 14:50 Height 5 ft 4 in Weight 148 lb 9.465 oz BMI 25.5 BP 114/76 Blood Pressure Location Rt brachial Position Sitting Pulse 74 Pulse Source Pulse Oximeter Pulse Oximetry (%) 97 Oxygen Delivery Method Room Air Intake Visit Reasons: slow transit constipation Intake Note: Toyin presents in office today for a scheduled initial assessment. CC; Referred for ST constipation. Pt reports that they have been experiencing melena intermittently throughout the last few years. Pt does have hx of both internal and external hemorrhoids that were surgically removed. Pt does also recognize that it can become worse per stress and / or certain trigger foods. Pt reports that they are typically having a BM daily. Pt denies any N/V. However, they do report having intermittent reflux, typically 1-2 times per week. Pt denies any previous hx of colo or EGD. Pt has family hx of polyps. Route Delivery Clerk Required: No Allergies No Known Allergies Allergy (Verified 09/02/24 13:55) HPI Comments Details: 39 y.o F with PMH of who is here for constipation. Pt reports hx of constipation x years. More recently has been seeing blood on wiping simon after she strains. Notices has to strain more when she has bread/wheat products. Has hx of hemorrhoidectomy x2 at [facility] in 2004/2005. Was sx free for 2 years and had to be redone. Reluctant to redo it due to the painful recovery. [facility] Medical History Internal hemorrhoids External hemorrhoids Anxiety, generalized Surgical History History of carpal tunnel surgery History of hemorrhoidectomy (~2014) No pertinent past surgical history Family History Father No problems noted. Mother Tyler's disease Sister Thyroid nodule Other Mental health disorder Social History Housing: House Patient Tobacco Use Status: Former Tobacco user e-Cigarette/Vaping Use: Never Used service: No Current occupational status: employed Cognitive needs: No Hearing needs: No Vision needs: No Review of Systems Const All systems reviewed & are unremarkable except as noted in HPI and below Physical Exam Vital Signs: Last Vital Signs Pulse 74 04/20/24 14:50 BP 114/76 04/20/24 14:50 Pulse Ox 97 04/20/24 14:50 Oxygen Delivery Method Room Air 04/20/24 14:50 BMI result Body Mass Index 25.5 No apparent distress Nonicteric Abdomen soft, nondistended Alert and oriented x3, normal gait Assessment & Plan Assessment & Plan (1) Constipation by delayed colonic transit: Code(s): K59.01 - Slow transit constipation Category: Medical (2) Rectal bleed: Code(s): K62.5 - Hemorrhage of anus and rectum Category: Medical Plan Overall assessment consistent with rectal bleeding 2/2 hemorrhoids which in turn is due to constipaiton and straining. Plan: - Avoid straining. Take senna and/or miralax daily or every other day - Increase hydration - Elevate legs while having a BM - Sitz bath - Fiber intake - Follow up in 4 weeks - if continues to have sx will discuss flex sig vs referral to surgery Coding Level of Care Code New Pt Level 4 (59219) Diagnoses Constipation by delayed colonic transit K59.01 Rectal bleed K62.5
== END 2024-04-20 15:37 | disposition home or self-care (01) ==
PROVIDERS: PCP Internal Medicine; Visit Provider Internal Medicine
DX: K59.01 Slow transit constipation (principal); K62.5 Hemorrhage of anus and rectum
CPT/HCPCS: 99499

== ENCOUNTER → 2024-04-20 14:48 | Outpatient (BNVA) | payer OTHER, SELFPAY | PROVIDERS: PCP Internal Medicine; Visit Provider Internal Medicine ==

== ENCOUNTER 2024-08-25 13:19 | Outpatient (AMB) | payer OTHER, SELFPAY ==
[2024-08-25 13:20] VITALS: BP 110/72; PULSE 67; TEMP 36.7; O2SAT 97; BMI 26.1
--- NOTE | 2024-08-25 13:20 | MHC.PC.OV ---
Vital Signs 08/25/24 13:20 Height 5 ft 4 in Weight 152 lb BMI 26.1 BP 110/72 Blood Pressure Location Rt brachial Position Sitting Pulse 67 Pulse Source Pulse Oximeter Temp 98.1 F Temp Source Oral Pulse Oximetry (%) 97 Oxygen Delivery Method Room Air Intake Visit Reasons: foll-up GI, general health Allergies No Known Allergies Allergy (Verified 08/25/24 13:20) Medication List - Last Reconciled 08/25/24 by Lorraine Omer MD buspirone 10 mg PO BID cholecalciferol (vitamin D3) 50 mcg PO DAILY dextroamphetamine-amphetamine 20 mg ER PO QAM drospirenone-ethinyl estradiol 3-0.02 mg 1 tab PO DAILY fluticasone propionate 50 mcg/actuation 1 spray intranasal DAILY Tobacco use date assessed: 08/25/24 Dental Screening Dental Screen Date: 08/25/24 Did you have a dental visit in the last 12 months?: Yes Did you have a dental problem in the last 6 months where you did not have access to dental care?: No Was dental information given to patient?: Patient has dentist HPI foll-up GI, general health HPI Details - The patient is a 39-year-old female presenting with prescription management and constipation consultation. - Anxiety persists and has been partly attributed to work-related stress and personal life events, with ongoing medication adjustments. - Difficulty concentrating managed through psych med prescriber with the help of Adderall. - Chronic constipation is actively managed through recommendations for MiraLAX, dietary fiber, and increased fluid intake. Patient has already been evaluated by Gastroenterology Problem List - Anxiety taking buspirone - Attention Deficit Disorder (suspected, under evaluation) through psych med prescriber - Constipation (chronic, managed with plhi-asn-gmzypbz medications and dietary changes) - work-related stress Patient Instructions - Take MiraLAX . As instructed by a stadium attendant - Ensure adequate hydration, especially when using fiber supplements. - Consider pphv-kyo-walzdaf options such as Dulcolax, Senokot, or a glycerin suppository for additional bowel regulation if necessary. - Maintain a diet with high-fiber foods such as fruits, beans, and spinach, and limit gluten and starch intake. - Practice meditation or stress-relief exercises to address anxiety and improve concentration. - Drink two glasses of room temperature water upon waking to aid digestion. - Document any significant changes or symptoms, and discuss with healthcare providers during follow-up visits. Review of Systems - Psychological: Reports anxiety and difficulty concentrating. - Gastrointestinal: Reports constipation, variable adherence to Miralax and fiber intake. - General: No fever no chills - Neurological: No headaches no dizziness - Ear nose throat: No sore throat no hearing difficulty no ear pain - Cardiovascular: No syncope, no chest pain, no palpitations - Endocrine: No polyuria polydipsia no heat intolerance - Genitourinary: No dysuria , no blood in urine Physical Exam General: No acute distress HEENT: No acute findings Neck: Supple Respiratory system: Able to talk in full sentences, no audible wheeze cardiovascular: S1-S2 regular in rate and rhythm Gastrointestinal: No pain, patient reports occasional bleeding and changes in bowel patterns Extremities: No new findings CLIENT SERVICE PROFESSIONAL: Alert awake oriented x3 motor sensory intact Skin: Normal turgor [facility] Medical History Internal hemorrhoids External hemorrhoids Anxiety, generalized Surgical History History of carpal tunnel surgery History of hemorrhoidectomy (~2014) No pertinent past surgical history Family History Father No problems noted. Mother Tyler's disease Sister Thyroid nodule Other Mental health disorder Social History Housing: House Patient Tobacco Use Status: Former Tobacco user e-Cigarette/Vaping Use: Never Used service: No Current occupational status: employed Cognitive needs: No Hearing needs: No Vision needs: No Questionnaire PHQ-9 Over the last 2 weeks, how often have you been bothered by any of the following problems? 1. Little interest or pleasure in doing things: several days 2. Feeling down, depressed, or hopeless: several days 3. Trouble falling or staying asleep, or sleeping too much: several days 4. Feeling tired or having little energy: several days 5. Poor appetite or overeating: several days 6. Feeling bad about yourself - or that you are a failure or have let yourself or your family down: several days 7. Trouble concentrating on things, such as reading the newspaper or watching television: several days 8. Moving or speaking so slowly that other people could have noticed. Or the opposite - being so fidgety or restless that you have been moving around a lot more than usual: not at all 9. Thoughts that you would be better off or of hurting yourself in some way: not at all Total score: 7 Depression Screening Interpretation: Negative Depression Screening Done: Yes 52344 - PHQ-9 Billing: Yes Source: Developed by Drs. Mario Alberto Lucero, Eleanor Phillips, Rony Melendez and colleagues, with an educational lupillo from [employer]. Thrive Questionnaire Date Thrive assessed: 08/25/24 I am a: Patient What is your living situation today?: I have a place to live, but I am worried about losing it in the future Within the past 12 months, did the food you bought not last and you didn't have the money to get more?: Never true Within the past 12 months, did you worry whether your food would run out before you got money to buy more?: Never true Do you have trouble paying for medicines?: No Do you have trouble getting transportation to medical appointments?: No Do you have trouble paying your heating and electricity bill?: Yes Do you have trouble taking care of your child, family member or friend?: No Do you have trouble with day-to-day activities such as bathing, preparing meals, shopping, managing finances, etc.?: No Are you currently unemployed and looking for a job?: No Are you interested in more education?: No Please select the resources that you would like help with: Housing/Custodial Currently or been in a relationship where the following occur: I choose not to answer THRIVE Score: 2 AUDIT C Alcohol Use Questionnaire (AUDIT-C) 1. How often do you have a drink containing alcohol?: 2-4 times a month 2. How many drinks containing alcohol do you have on a typical day when you are drinking?: 3 or 4 3. How often do you have six or more drinks on one occasion?: Never Total Score: 3 Score Reviewed/Action Taken: Yes YUNI-7 AMB Questionnaire YUNI-7 Date YUNI - 7 assessed: 08/25/24 Feeling nervous, anxious, or on edge: 1 = Several days Not being able to stop or control worryin = Several days Worrying too much about different things: 1 = Several days Trouble relaxin = Several days Being so restless that it is hard to sit still: 1 = Several days Becoming easily annoyed or irritable: 1 = Several days Feeling afraid as if something awful might happen: 1 = Several days Total YUNI-7 score (0-4 normal; 5-9 mild; 10-14 moderate; 15-21 severe): 7 Source: Developed by Drs. Mario Alberto Lucero, Eleanor Phillips, Rony Melendez and colleagues, with an educational lupillo from [employer]. YUNI-7 Assessment Billing YUNI-7 Assessment Tool: YUNI-7 Assessment 28433 Physical exam (Primary Care) Vital Signs: Last Vital Signs Temp 98.1 F 08/25/24 13:20 Pulse 67 08/25/24 13:20 BP 110/72 08/25/24 13:20 Pulse Ox 97 08/25/24 13:20 Oxygen Delivery Method Room Air 08/25/24 13:20 BMI result Body Mass Index 26.1 Tobacco/Smoking Status: Tobacco use Status Tobacco use date assessed 08/25/24 08/25/24 13:22 Patient Tobacco Use Status Former Tobacco user 08/25/24 13:22 e-Cigarette/Vaping Use Never Used 08/25/24 13:22 PHQ-9: PHQ-9 Score PHQ-9: Total score 7 08/25/24 14:02 Depression Screening Interpretation: Negative Thrive Assessment: Date of Thrive Assessment Date Thrive assessed 08/25/24 08/25/24 13:22 Currently or been in a relationship where the following occur: I choose not to answer Coding Level of Care Code Est Pt Level 4 (08855) Diagnoses Anxiety, generalized F41.1 Difficulty concentrating R41.840 Panic attacks F41.0 Constipation by delayed colonic transit K59.01 Stress at work Z56.6 Feeling worried R45.82 Additional Codes YUNI-7 Assessment Billing - YUNI-7 Assessment Tool: YUNI-7 Assessment 94973 ([id number]) PHQ-9 - 75862 - PHQ-9 Billing: Yes ([id number]) Assessment & Plan Assessment & Plan (1) Anxiety, generalized: Code(s): F41.1 - Generalized anxiety disorder Category: Medical (2) Difficulty concentrating: Code(s): R41.840 - Attention and concentration deficit Category: Medical (3) Panic attacks: Code(s): F41.0 - Panic disorder [episodic paroxysmal anxiety] Category: Medical (4) Constipation by delayed colonic transit: Code(s): K59.01 - Slow transit constipation Category: Medical (5) Stress at work: Code(s): Z56.6 - Other physical and mental strain related to work Category: Social Hx (6) Feeling worried: Code(s): R45.82 - Worries Category: Medical Plan - The patient is a 39-year-old female presenting with prescription management and constipation consultation. - Anxiety persists and has been partly attributed to work-related stress and personal life events, with ongoing medication adjustments. - Difficulty concentrating managed through psych med prescriber with the help of Adderall. - Chronic constipation is actively managed through recommendations for MiraLAX, dietary fiber, and increased fluid intake. Patient has already been evaluated by Gastroenterology - have difficulty relaxing as worries about everything, which might be contributing to difficulty concentrating He had a detailed discussion about that, talked about meditation Problem List - Anxiety taking buspirone - Attention Deficit Disorder (suspected, under evaluation) through psych med prescriber - Constipation (chronic, managed with zgqn-sfe-skptkpl medications and dietary changes) - work-related stress Patient Instructions - Take MiraLAX . As instructed by a stadium attendant - Ensure adequate hydration, especially when using fiber supplements. - Consider oiia-xso-pqvuqca options such as Dulcolax, Senokot, or a glycerin suppository for additional bowel regulation if necessary. - Maintain a diet with high-fiber foods such as fruits, beans, and spinach, and limit gluten and starch intake. - Practice meditation or stress-relief exercises to address anxiety and improve concentration. - Drink two glasses of room temperature water upon waking to aid digestion. - Document any significant changes or symptoms, and discuss with healthcare providers during follow-up visits.
== END 2024-08-25 14:32 | disposition home or self-care (01) ==
PROVIDERS: PCP Internal Medicine; Visit Provider Internal Medicine
DX: F41.1 Generalized anxiety disorder (principal); R41.840 Attention and concentration deficit; F41.0 Panic disorder [episodic paroxysmal anxiety]; K59.01 Slow transit constipation; Z56.6 Other physical and mental strain related to work; R45.82 Worries

== ENCOUNTER → 2024-08-25 13:19 | Outpatient (BNVA) | payer OTHER, SELFPAY | PROVIDERS: PCP Internal Medicine; Visit Provider Internal Medicine | DX: F41.1 Generalized anxiety disorder (principal); R41.840 Attention and concentration deficit; F41.0 Panic disorder [episodic paroxysmal anxiety]; K59.01 Slow transit constipation; R45.82 Worries; Z56.6 Other physical and mental strain related to work | CPT/HCPCS: 96127 ==

== ENCOUNTER 2024-09-02 13:19 | Outpatient (AMB) | payer OTHER, SELFPAY ==
--- NOTE | 2024-09-02 13:52 | AM.OFFWIN_ITS ---
Intake Vital Signs 09/02/24 13:54 Weight 150 lb BP 126/80 Blood Pressure Location Lt brachial Position Sitting Pulse 87 Pulse Source Pulse Oximeter Pulse Oximetry (%) 98 Oxygen Delivery Method Room Air Intake Visit Reasons: EP LT Hip pain Intake Note: Patient here for left hip pain, started getting pain after playing soccer game. Patient Tobacco Use Status: Former Tobacco user Allergies No Known Allergies Allergy (Verified 09/02/24 13:55) Do you need a note to return to daycare/school/sports/work: Yes HPI HPI Comments History of Present Illness Details History of Present Illness - The patient is a 39-year-old female pr esenting with left hip pain x 1 day. - Pain initiated after playing soccer th e night before and worsened significantly by the next morning. - There was no identifiable trauma; olivares srinath, the patient experienced a twisting sensation in the hip and was playing soccer in a new to her indoor area, not wearing typical soccer shoes. She works out regularly but she hasn't played soccer on this lee in a while. - Acute management includes icing and NS AIDs, specifically ibuprofen and Aleve, with advice to alter medication timing. - Pain is worse when walking up stairs - She points to left lateral hip as to w here the pain is Physical Exam General: Cooperative, healthy appearing, comfortable, no acute distress and well developed Orientation: Patient oriented x3 Head: Normal to inspection Ears: Hearing grossly normal bilaterally Nose: Normal external nose present Face and sinus: Normal facial exam Eyes: Appearance normal, both eyes and all related structures Neck: Normal visual inspection and Yes full ROM Respiratory: Normal respiratory effort and able to speak in complete sentences. Skin: No rashes or lesions noted Neuro: Patient oriented x3 Extremities: TTP directly on the lateral left hip. Normal to inspection otherwise. [facility] Medical History Internal hemorrhoids External hemorrhoids Anxiety, generalized Surgical History History of carpal tunnel surgery History of hemorrhoidectomy (~2014) No pertinent past surgical history Family History Father No problems noted. Mother Tyler's disease Sister Thyroid nodule Other Mental health disorder Social History Housing: House Patient Tobacco Use Status: Former Tobacco user e-Cigarette/Vaping Use: Never Used service: No Current occupational status: employed Cognitive needs: No Hearing needs: No Vision needs: No Review of Systems Const All systems reviewed & are unremarkable except as noted in HPI and below Physical Exam Vital Signs: Last Vital Signs Pulse 87 09/02/24 13:54 BP 126/80 09/02/24 13:54 Pulse Ox 98 09/02/24 13:54 Oxygen Delivery Method Room Air 09/02/24 13:54 Assessment & Plan Assessment & Plan (1) Trochanteric bursitis of left hip: Code(s): M70.62 - Trochanteric bursitis, left hip Plan: The patient is advised to continue with naproxen 500 mg twice daily and rest, in conjunction with icing the affected area, as the primary management for Trochanteric Bursitis in the left hip. Education on the appropriate usage of NSAIDs, especially regarding concurrent use, is provided, and the patient is prescribed naproxen due to its anti-inflammatory properties ATC x 3-4 days and use ice. In cases where symptoms do not improve over the next two weeks, the potential for steroid intervention is discussed. It's recommended that she follow up with her primary care physician, Dr. Omer, for further evaluation or referral if necessary. Activity modification/reduction is necessary to reduce aggravation of the hip bursa, important to rest the hip. Patient was informed and verbally consented to the use of an ambient scribe for clinic note documentation during this visit. Medications: New naproxen 500 mg PO Q12H PRN 20 tabs 0RF pain Coding Level of Care Code Est Pt Level 3 (73303) Diagnoses Trochanteric bursitis of left hip M70.62
[2024-09-02 13:54] VITALS: BP 126/80; PULSE 87; O2SAT 98
== END 2024-09-02 14:18 | disposition home or self-care (01) ==
PROVIDERS: PCP Internal Medicine; Visit Provider Physician Assistant
DX: M70.62 Trochanteric bursitis, left hip (principal)

== ENCOUNTER → 2024-09-02 13:19 | Outpatient (BNVA) | payer OTHER, SELFPAY | PROVIDERS: PCP Internal Medicine ==

== ENCOUNTER 2025-02-26 08:31 | Outpatient (AMB) | payer OTHER, SELFPAY ==
--- NOTE | 2025-02-26 08:38 | A.OFFPC_ITS ---
Vital Signs 02/26/25 08:41 Height 5 ft 4 in Weight 153 lb BMI 26.3 Intake Visit Reasons: PE [employer]ice Required: No Allergies No Known Allergies Allergy (Verified 02/26/25 08:41) Medication List - Last Reconciled 02/26/25 by Lorraine Omer MD bupropion HCl XL 150 mg PO QAM buspirone 10 mg PO ONCE cholecalciferol (vitamin D3) 50 mcg PO DAILY dextroamphetamine-amphetamine 20 mg ER PO QAM drospirenone-ethinyl estradiol 3-0.02 mg 1 tab PO DAILY fluticasone propionate 50 mcg/actuation 1 spray intranasal DAILY Tobacco use date assessed: 08/25/24 Dental Screening Dental Screen Date: 08/25/24 HPI PE HPI Details History of Present Illness The patient is a 40-year-old female presenting for annual physical exam Depression: - The patient reports ongoing depression , which has recently improved. Previous exacerbation before a vacation in [facility]. - Stressors include son's recent medical issues and adversities with the child's father. Anxiety: - The patient has a history of anxiety, reporting it has improved over time. - Triggers include personal and family s tressors related to her son's health and custody disputes. Attention-Deficit/Hyperactivity Disorder (ADHD): - The patient has a history of ADHD and currently on medications, including using Adderall previously. - She took a break from her medications during vacation, now considering better adherence. Elevated Liver Enzyme (AST): - Previous labs indicated slightly eleva eleazar AST, exact level unspecified, but was less than 100. Medical History: - Depression - Anxiety - Attention-Deficit/Hyperactivity Disord er (ADHD) - Elevated liver enzyme (AST) Social History: - with at least one son and inv olvement in his medical care and well- being. - Experiences significant family-related stress, particularly regarding custody issues with her son's father. - Recently changed employment to better accommodate her son's needs. Health Maintenance - Annual mammogram is due; last screenin g conducted in February last year. - Monitoring of elevated liver enzyme re quired. [place] [facility] - Sees a nurse practitioner, Kristy vidales, at [facility]. - Medications managed in consultation wi a psych med prescriber. Medications - Bupropion 150 mg for depression. - Buspirone for anxiety. - Adderall for ADHD (not currently takin maximilian). - Sxsa-wwj-[id number] allergy medication, a nd nasal spray for allergies. - Vitamin D supplementation. Employment - Previously employed at [employer], left to be more present for her son. 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 Patient Instructions - Follow up with the prescriber chavez yao mental health medications. - Schedule and complete labs as ordered. - Consider scheduling annual mammogram s creening. Review of Systems - General: No fever no chills - Neurological: No headaches no dizzin ess - Ear nose throat: No sore throat no hearing difficulty no ear pain - Cardiovascular: No syncope, no chest pain, no palpitations - Gastrointestinal: No nausea vomiting or diarrhea - Endocrine: No polyuria polydipsia no heat intolerance - Genitourinary: No dysuria - Skin: No new complaints Physical Exam General: Cooperative, healthy appearing, comfortable, no acute distress Orientation: Patient oriented x3 Limitations: None Head: Normal to inspection Ears: Within normal limit visually Nose: Normal external nose present Face and sinus: Normal facial exam Eyes: Appearance normal, extraocular movement intact pupils reactive Neck: Normal visual inspection and supple Respiratory: Normal respiratory effort and able to speak in complete sentences. Clear to auscultation, no stridor Cardiovascular: S1 and S2 RRR Breast exam benign GI: Normal to inspection. Soft to palpation and nontender Skin: Turgor normal, no acute findings. Neuro: Patient oriented x3, motor sensory intact, balance intact, tandem pass Extremities: Normal to inspection [facility] Medical History Internal hemorrhoids External hemorrhoids Anxiety, generalized Surgical History History of carpal tunnel surgery History of hemorrhoidectomy (~2014) No pertinent past surgical history Family History Father No problems noted. Mother Tyler's disease Sister Thyroid nodule Other Mental health disorder Social History Housing: House Patient Tobacco Use Status: Former Tobacco user e-Cigarette/Vaping Use: Never Used service: No Current occupational status: employed Cognitive needs: No Hearing needs: No Vision needs: No Questionnaire Thrive Questionnaire Date Thrive assessed: 08/25/24 YUNI-7 AMB Questionnaire YUNI-7 Date YUNI - 7 assessed: 08/25/24 Source: Developed by Drs. Mario Alberto Lucero, Eleanor Phillips, Rony Melendez and colleagues, with an educational lupillo from [employer] Physical exam (Primary Care) BMI result Body Mass Index 26.3 Tobacco/Smoking Status: Tobacco use Status Tobacco use date assessed 08/25/24 02/26/25 08:39 Patient Tobacco Use Status Former Tobacco user 02/26/25 08:39 e-Cigarette/Vaping Use Never Used 02/26/25 08:39 Thrive Assessment: Date of Thrive Assessment Date Thrive assessed 08/25/24 02/26/25 08:39 Coding Level of Care Code Est Pt Level 3 (87698) Est Pt Prev Care 40-64y(59845) Diagnoses Encounter for general adult medical examination with abnormal findings Z00.01 LFT elevation R79.89 Major depressive disorder, recurrent, moderate F33.1 PTSD (post-traumatic stress disorder) F43.10 Depression, major, single episode, mild F32.0 Anxiety, generalized F41.1 Stress at home F43.9 Internal hemorrhoids K64.8 Assessment & Plan Assessment & Plan (1) Encounter for general adult medical examination with abnormal findings: Code(s): Z00.01 - Encounter for general adult medical examination with abnormal findings Category: Medical (2) LFT elevation: Code(s): R79.89 - Other specified abnormal findings of blood chemistry Category: Medical (3) Major depressive disorder, recurrent, moderate: Code(s): F33.1 - Major depressive disorder, recurrent, moderate Category: Medical (4) PTSD (post-traumatic stress disorder): Code(s): F43.10 - Post-traumatic stress disorder, unspecified Category: Medical (5) Depression, major, single episode, mild: Code(s): F32.0 - Major depressive disorder, single episode, mild Category: Medical (6) Anxiety, generalized: Code(s): F41.1 - Generalized anxiety disorder Category: Medical (7) Stress at home: Code(s): F43.9 - Reaction to severe stress, unspecified Category: Social Hx (8) Internal hemorrhoids: Code(s): K64.8 - Other hemorrhoids Category: Medical Plan History of Present Illness The patient is a 40-year-old female presenting for annual physical exam Depression: - The patient reports ongoing depression, which has recently improved. Previous exacerbation before a vacation in [facility]. - Stressors include son's recent medical issues and adversities with the child's father. Anxiety: - The patient has a history of anxiety, reporting it has improved over time. - Triggers include personal and family stressors related to her son's health and custody disputes. Attention-Deficit/Hyperactivity Disorder (ADHD): - The patient has a history of ADHD and currently on medications, including using Adderall previously. - She took a break from her medications during vacation, now considering better adherence. Elevated Liver Enzyme (AST): - Previous labs indicated slightly elevated AST, exact level unspecified, but was less than 100. Medical History: - Depression - Anxiety - Attention-Deficit/Hyperactivity Disorder (ADHD) - Elevated liver enzyme (AST) Social History: - with at least one son and involvement in his medical care and well- being. - Experiences significant family-related stress, particularly regarding custody issues with her son's father. - Recently changed employment to better accommodate her son's needs. Health Maintenance - Annual mammogram is due; last screening conducted in February last year. - Monitoring of elevated liver enzyme required. [place] [facility] - Sees a nurse practitioner, Kristy Alfonso, at [facility]. - Medications managed in consultation with a psych med prescriber. Medications - Bupropion 150 mg for depression. - Buspirone for anxiety. - Adderall for ADHD (not currently taking). - Syut-yhs-sbyybve allergy medication, and nasal spray for allergies. - Vitamin D supplementation. Employment - Previously employed at [employer], left to be more present for her son. 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 Patient Instructions - Follow up with the prescriber regarding mental health medications. - Schedule and complete labs as ordered. - Consider scheduling annual mammogram screening. Orders: Orders Comprehensive Met. Panel Today F32.0 - Major depressive disorder, single episode, mild, F33.1 - Major depressive disorder, recurrent, moderate, F41.1 - Generalized anxiety disorder, F43.10 - Post-traumatic stress disorder, unspecified, F43.9 - Reaction to severe stress, unspecified, K64.8 - Other hemorrhoids, Z00.01 - Encounter for general adult medical examination with abnormal findings TSH reflex Free T4 Today F32.0 - Major depressive disorder, single episode, mild, F33.1 - Major depressive disorder, recurrent, moderate, F41.1 - Generalized anxiety disorder, F43.10 - Post-traumatic stress disorder, unspecified, F43.9 - Reaction to severe stress, unspecified, K64.8 - Other hemorrhoids, Z00.01 - Encounter for general adult medical examination with abnormal findings Vitamin D 25-OH (D2 and D3) Today F32.0 - Major depressive disorder, single episode, mild, F33.1 - Major depressive disorder, recurrent, moderate, F41.1 - Generalized anxiety disorder, F43.10 - Post-traumatic stress disorder, unspecified, F43.9 - Reaction to severe stress, unspecified, K64.8 - Other hemorrhoids, Z00.01 - Encounter for general adult medical examination with abnormal findings Complete Blood Count Auto Diff Today F32.0 - Major depressive disorder, single episode, mild, F33.1 - Major depressive disorder, recurrent, moderate, F41.1 - Generalized anxiety disorder, F43.10 - Post-traumatic stress disorder, unspecified, F43.9 - Reaction to severe stress, unspecified, K64.8 - Other hemorrhoids, Z00.01 - Encounter for general adult medical examination with abnormal findings LDL Cholesterol Direct Today F32.0 - Major depressive disorder, single episode, mild, F33.1 - Major depressive disorder, recurrent, moderate, F41.1 - Generalized anxiety disorder, F43.10 - Post-traumatic stress disorder, unspecified, F43.9 - Reaction to severe stress, unspecified, K64.8 - Other hemorrhoids, Z00.01 - Encounter for general adult medical examination with abnormal findings
[2025-02-26 08:41] VITALS: BMI 26.3
== END 2025-02-26 09:05 | disposition home or self-care (01) ==
PROVIDERS: PCP Internal Medicine; Visit Provider Internal Medicine
DX: Z00.00 Encounter for general adult medical examination without abnormal findings (principal); R79.89 Other specified abnormal findings of blood chemistry; F33.1 Major depressive disorder, recurrent, moderate; F43.10 Post-traumatic stress disorder, unspecified; F41.1 Generalized anxiety disorder; F43.9 Reaction to severe stress, unspecified; K64.8 Other hemorrhoids

== ENCOUNTER 2025-02-26 08:31 | Outpatient (REF) | payer OTHER, SELFPAY ==
[2025-02-26 10:08] LABS: MANUAL DIFF FLAG NO
[2025-02-26 10:25] LABS: Hematocrit 39.3 % (37.0-47.0); Hemoglobin 13.2 g/dl (12.0-16.0); Imm Gran Abs Auto 0.01 X10*3/uL (0.00-0.03); Imm Gran Pct Auto 0.2 % (0.0-0.4); Lymphocytes Absolute Auto 2.1 X10*3/uL (1.2-4.9); Mean Corpuscular HGB Conc 33.6 g/dl (31.0-35.0); Mean Corpuscular Hemoglobin 30.1 pg (27.0-33.0); Mean Corpuscular Volume 89.5 fL (80.0-98.0); NRBC Abs Auto 0.000 X10*3/uL (0.0-0.012); NRBC Pct Auto 0.0 /100WBC (0.0-0.2); Platelet Count 311 X10*3/uL (160-400); Red Blood Count 4.39 X10*6/uL (4.20-5.50); White Blood Count 5.7 X10*3/uL (4.8-10.8)
[2025-02-26 11:13] LABS: Alanine Aminotransferase 14 U/L (0-31); Albumin Level 4.2 g/dL (3.5-5.0); Alkaline Phosphatase 35 U/L (39-117); Anion Gap 13 (12-20); Aspartate Amino Transferase 18 U/L (5-31); Blood Urea Nitrogen 16 mg/dL (9-16); Calcium 9.1 mg/dL (8.4-10.2); Carbon Dioxide 24 mmol/L (22-29); Chloride 104 mmol/L (96-108); Estimated Glomerular Filt Rate > 60; Potassium 4.0 mmol/L (3.3-5.1); Sodium 137 mmol/L (135-145); Total Protein 7.4 g/dL (6.5-8.0)
[2025-03-03 15:53] LABS: Vitamin D 25-OH, D2 <4 ng/mL; Vitamin D 25-OH, D3 70 ng/mL; Vitamin D 25-OH, Total 70 ng/mL (30-100)
== END 2025-02-26 08:32 | disposition home or self-care (01) ==
LOC: HO.HMGCLDS 08:31
PROVIDERS: PCP Internal Medicine; Visit Provider Internal Medicine
DX: Z00.01 Encounter for general adult medical examination with abnormal findings (principal); R79.89 Other specified abnormal findings of blood chemistry; F33.1 Major depressive disorder, recurrent, moderate; F43.10 Post-traumatic stress disorder, unspecified; F41.1 Generalized anxiety disorder; F43.9 Reaction to severe stress, unspecified; K64.8 Other hemorrhoids
CPT/HCPCS: 36415; 80053; 82306; 83721; 84443; 85025